=== PATIENT | male | born 1985 | race Caucasian/White ===

== ENCOUNTER 2021-02-06 00:17 | Emergency (ER) | payer MEDICARE, OTHER ==
[~2021-02-06] VITALS: Ht 180.3 cm; Wt 58.1 kg
[2021-02-06] MEDS ORDERED: ACETAMINOPHEN 325 MG/10 ML UDC ONE (01:00)
[2021-02-06] MEDS ORDERED: SODIUM CHLORIDE 0.9% 1000ML 1,000 ML ONE (01:00)
[2021-02-06] MEDS ORDERED: SODIUM CHLORIDE 0.9% 100 ML ONE (01:13)
== END 2021-02-06 01:42 | disposition home or self-care (01) ==
LOC: ER 00:21
DX: U07.1 COVID-19 (principal); R05.9 Cough, unspecified; R06.02 Shortness of breath
CPT/HCPCS: 99283; J7030; J7050